=== PATIENT | female | born 1990 | race Two or more races ===

== ENCOUNTER 2018-01-09 05:12 | Day surgery (SDC) | payer OTHER ==
[2018-01-09] MEDS ORDERED: ceFAZolin 2 GM/DEXTROSE 100 ML IV ONE (05:57)
[2018-01-09] MEDS ORDERED: LIDOCAINE 1% 2 ML INJ ID PRN (05:58)
[2018-01-09] MEDS ORDERED: LR 1,000 ML IV ONE (05:58)
[2018-01-09] MEDS ORDERED: ACETAMINOPHEN 500 MG TAB PO ONE (06:11)
[2018-01-09] MEDS ORDERED: PHENAZOPYRIDINE HCL 200 MG TAB PO ONE (06:11)
[2018-01-09] MEDS ORDERED: GABAPENTIN 300 MG CAP PO ONE (06:11)
--- NOTE | 2018-01-09 06:14 | PDGENHP ---
History and Physical History and Physical: Assessment and Plan: 1. Pelvic pain Suzette has symptoms and exam highly suggestive of pelvic endometriosis. We discussed all conservative and surgical options. At the end of our discussion, which involved Dr. Looney, she would like to proceed with robotic laparoscopic excision of endometriosis. She may continue ibuprofen until her surgery. We have coordinated with Dr. Garrett at [facility] who will see her preoperatively to consult removing her gall bladder. 2. Dysmenorrhea 3. Dyspareunia, female Subjective: Patient ID: Suzette is a 27 y.o. female who presents to [facility] for endometriosis consult. HPI Suzette is a 27 year old para [address] Looney via an online support group. Suzette notes that she has always had painful periods. Her menses started at age 9, and were previously regular, with 7-9 days of bleeding. She wears pads, and changes them frequently. In her early 20's, she tried contraception for her menses and pain, starting with a combined patch. She could not tolerate it due to migraines and bruising. She was then changed to a progesterone IUD. Starting in June, she developed worsening RLQ pain, that has become increasingly worse. She takes ibuprofen daily for the pain, and notices a difference if she misses a dose. She was found to have a cyst on an ultrasound in July in [place]. She had her IUD removed and a nexplanon placed, and felt better after her IUD was removed for a short period of time. The pain became worse again, and feels like a sharp, stabbing pain in her RLQ. She does have left sided and midline pelvic pain as well. Suzette has painful intercourse almost every time, to the point where she has stopped having intercourse due to the pain. She notes pelvic discomfort and cramping with penetration as well as orgasm. She has recently started experiencing painful bowel movements, but mostly since she flew [place] to the [place]. She became very constipated during travel and since then has had painful bowel movements. She does have diarrhea during her menses. Suzette has a twin with endometriosis. She is in the [employer] and is under their insurance for the time being, but has been sent [place] the [place] in order to have medical evaluations. 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 She also has gall stones found during her workup and has an appointment with a general surgeon in [place] to schedule a cholecystectomy. She has imaging from [facility] with her. CURRENT MEDICATIONS: Current Outpatient Medications Medication Sig albuterol HFA 90 mcg/actuation inhaler uqofloh-zjmvrjamqrkqx-tgrdorjn (EXCEDRIN MIGRAINE) 250-250-65 mg per tablet ibuprofen (ADVIL,MOTRIN) 400 mg tablet Take 400 mg by mouth every 4 hours as needed for Pain. Take with food. loratadine (CLARITIN PO) naproxen (NAPROSYN) 250 mg tablet Take 250 mg by mouth 2 times daily (with meals). No current facility-administered medications for this visit. ALLERGIES: Patient has no known allergies. I have reviewed, verified and agree with the past medical and surgical history as documented by the RN today. Review of Systems Constitutional: Negative. Respiratory: Negative. Cardiovascular: Negative. Gastrointestinal: Positive for constipation and diarrhea. Genitourinary: Positive for dyspareunia, menstrual problem and pelvic pain. Musculoskeletal: Positive for back pain. Skin: Negative. Objective: Vital Signs: Visit Vitals BP 122/86 Pulse 74 Temp 36.5 C (97.7 F) (Temporal) Resp 14 Ht 1.53 m (5' 0.25") Wt 86.1 kg (189 lb 12.8 oz) SpO2 98% BMI 36.76 kg/m Physical Exam Constitutional: She is oriented to person, place, and time. She appears well- developed and well-nourished. Eyes: Pupils are equal, round, and reactive to light. Neck: Normal range of motion. Cardiovascular: Normal rate. Pulmonary/Chest: Effort normal. Abdominal: Soft. Bowel sounds are normal. Musculoskeletal: Normal range of motion. Neurological: She is alert and oriented to person, place, and time. Skin: Skin is warm and dry. Psychiatric: She has a normal mood and affect. Pelvic: Normal external genitalia. Non-gaping introitus. No vaginal bleeding or discharge. Cervix without lesioni or discharge. Tenderness bilateral uterosacral ligaments, posterior cervix and uterus. Uterus mobile, adnexa mobile. No masses noted. Procedures Pelvic ultrasound performed by Dr. Chace Looney. Findings are as follows: PELVIC ULTRASOUND Transvaginal Pelvic Ultrasound Indication: Pelvic pain. Findings: The uterus is anterior and measures 6.8 x 3.1 x 2.9 cm. No uterine abnormalities are seen. The right ovary measures 2.4 x 1.9 cm. The left ovary measures 2.3 x 2.0 cm. No adnexal masses are seen. No free fluid is seen. There is no evidence of significant adhesive disease. The gynecologic organs are tender. Impression: Unremarkable pelvic ultrasound. DATA: Radiology study reports viewed and are pertinent for cystic ovaries. TIME/COUNSELING: I personally spent a total of 75 minutes. Of that 75 minutes was counseling/ coordination of patient's care. See my note above for details.
[2018-01-09] MEDS ORDERED: BUPIVACAINE/EPI 0.5% 30 ML SDV ONE (06:16)
[2018-01-09] MEDS ORDERED: BUPIVACAINE 0.5% 30 ML SDV ONE (06:16)
--- NOTE | 2018-01-09 06:44 | PDANEPAE ---
ANE History of Present Illness 27 y/o female with gallstones. h/o notable for endometriosis. ANE Past Medical History - Cardiovascular History Hx Hypertension: No Hx Arrhythmias: No Hx Chest Pain: No Hx Coronary Artery / Peripheral Vascular Disease: No Hx CHF / Valvular Disease: No Hx Palpitations: No - Pulmonary History Hx COPD: No Hx Asthma/Reactive Airway Disease: Yes Hx Recent Upper Respiratory Infection: No Hx Oxygen in Use at Home: No Hx Sleep Apnea: No Sleep Apnea Screening Result - Last Documented: Negative Pulmonary History Comment: ASTHMA TRIGGERS EXERCISE INDUCED,ENVIRONMENTAL - Neurologic History Hx Cerebrovascular Accident: No Hx Seizures: No Hx Dementia: No - Endocrine History Hx Diabetes: No - Renal History Hx Renal Disorders: No - Liver History Hx Hepatic Disorders: Yes Hepatic History Comment: GALLSTONES DX 08/2017 - Neurological & Psychiatric Hx Hx Neurological and Psychiatric Disorders: Yes Neurological / Psychiatric History Comment: MIGRAINES 3 TIMES A MONTHS - Cancer History Hx Cancer: No - Congenital Disorder History Hx Congenital Disorders: No - GI History Hx Gastrointestinal Disorders: No - Other Health History Other Health History: ECZEMA,PSORIASIS. ENDOMETRIOSIS. DYSMENORRHEA. BRUISES EASILY - Chronic Pain History Chronic Pain: Yes (RUQ,LOWER ABD) - Surgical History Prior Surgeries: LT EAR X2 FOR CYST REMVL ANE Review of Systems Review of Systems: - Exercise capacity Exercise capacity: >=4 METS METS (RN): 4 METS ANE Patient History - Allergies Allergies/Adverse Reactions: hydrocodone [From Vicodin] Allergy (Verified 01/01/18 11:27) HALLUCINATIONS lactose Allergy (Verified 01/01/18 11:27) GI DISCOMFORT - Home Medications Home medications: home medication list seen and reviewed Home Medications: ALBUTEROL SULFATE PRN 01/01/18 [Last Taken 01/09/18 06:10] Fexofenadine HCl PRN 01/01/18 [Last Taken 01/08/18] Melatonin HS 01/01/18 [Last Taken 12/26/17] Naproxen PRN 01/01/18 [Last Taken 01/01/18] - NPO status NPO Status: no food or drink >8 hours NPO Since - Liquids (Date): 01/09/18 NPO Since - Liquids (Time): 03:00 NPO Since - Solids (Date): 01/08/18 NPO Since - Solids (Time): 21:00 - Smoking Hx Smoking Status: Never smoked ANE Labs/Vital Signs - Vital Signs Blood Pressure: 131/78 Heart Rate: 64 Respiratory Rate: 22 O2 Sat (%): 97 Height: 154.94 cm Weight: 86.636 kg ANE Physical Exam - Airway Mallampati Score: Class 1 Mouth exam: normal dental/mouth exam - Pulmonary Pulmonary: clear to auscultation - Cardiovascular Cardiovascular: regular rate and rhythym - ASA Status ASA Status: II
[2018-01-09] MEDS ORDERED: SCOPOLAMINE HYDROBROMIDE 1 MG/3 DAYS PATCH TD ONE (07:01)
[2018-01-09] MEDS ORDERED: MIDAZOLAM 2 MG/2 ML VIAL IVP ONE (07:01)
[2018-01-09] MEDS ORDERED: fentaNYL 100 MCG/2 ML INJ ONE ×3 (07:07→09:41)
[2018-01-09] MEDS ORDERED: PROPOFOL 200 MG/20 ML VIAL ONE (07:08)
[2018-01-09] MEDS ORDERED: ROCURONIUM 50 MG/5 ML VIAL ONE ×2 (07:10→08:35)
--- NOTE | 2018-01-09 07:10 | PDHPUP ---
History & Physical Update H&P update statement: This history and physical update is based on an assessment of the patient which was completed after admission or registration (within 24 hours), but prior to the surgery/procedure. H&P update: H&P reviewed & patient examined, no change in patient's condition since H&P completed
[2018-01-09] MEDS ORDERED: LIDOCAINE 2% 2 ML INJ ONE ×2 (07:11)
[2018-01-09] MEDS ORDERED: ONDANSETRON 4 MG/2 ML VIAL ONE (08:00)
[2018-01-09] MEDS ORDERED: DEXAMETHASONE 4 MG/ML VIAL ONE (08:00)
[2018-01-09] MEDS ORDERED: PETROLAT,WHT/MIN OIL/SOD CHL 3.5 GM OPHT.OINT ONE (08:43)
[2018-01-09] MEDS ORDERED: ALBUTEROL 3 ML DEYVIAL IH PRN (08:57)
[2018-01-09] MEDS ORDERED: HYDROmorphONE/DILAUDID 2 MG/ML INJ IVP PRN (08:57)
[2018-01-09] MEDS ORDERED: ONDANSETRON 4 MG/2 ML VIAL IVP PRN (08:57)
[2018-01-09] MEDS ORDERED: METOCLOPRAMIDE 10 MG/2 ML VIAL IVP PRN (08:57)
[2018-01-09] MEDS ORDERED: LR 500 ML IV PRN (08:57)
[2018-01-09] MEDS ORDERED: PROMETHAZINE HCL 25 MG/ML INJ IVP PRN (08:57)
[2018-01-09] MEDS ORDERED: NALOXONE HCL 0.4 MG/ML INJ IVP PRN (08:57)
--- NOTE | 2018-01-09 08:57 | POSTOPPROG ---
Post Op Note Date of Operation: 01/09/18 Surgeon: Chace Looney Print Production Manager: Clementine Dumont Anesthesia: GET(General Endotracheal) Pre-op Diagnosis: Pelvic pain, endo Post-op Diagnosis: same Procedure: robotic excision of endo, bilat ureterolysis and ovarian pexy Inf/Abcess present in the surg proc area at time of surgery?: No EBL: Minimal Complications: None
[2018-01-09] MEDS ORDERED: GLYCOPYRROLATE 0.2 MG/1 ML VIAL ONE ×2 (09:01)
[2018-01-09] MEDS ORDERED: KETOROLAC 30 MG/1 ML SDV ONE (09:16)
--- NOTE | 2018-01-09 09:26 | POSTOPPROG ---
Post Op Note Date of Operation: 01/09/18 Surgeon: Emmanuelle Garrett Exterminator Helper Termite: niall Anesthesiologist: andrey Anesthesia: GET(General Endotracheal) Pre-op Diagnosis: cholelithiasis Post-op Diagnosis: same Indication: 27 w cholelithiasis and endometriosis Procedure: lap brijesh lap appy Findings: large gallbladder, appendix injected Inf/Abcess present in the surg proc area at time of surgery?: No Depth: Superfical (Skin SQ) EBL: Minimal Specimen(s): gallbladder, appendix
[2018-01-09] MEDS: fentaNYL 100 MCG/2 ML INJ IVP PRN ×2 (09:40→10:03)
--- NOTE | 2018-01-09 09:43 | POSTANESTH ---
Post Anesthetic Evaluation Respiratory Status: Normal, Stable Level of Consciousness/Mental Status: Can Participate in Eval, Mildly Sleepy, Arousable Pain Control: Adequate, Prn Tx Ordered Nausea/Vomiting Control: Adequate, Prn Tx Ordered Complications Possibly Related to Anesthesia: None Noted
[2018-01-09] MEDS ORDERED: MEPERIDINE 25 MG/0.5 ML AMP IVP PRN (09:44)
[2018-01-09] MEDS ORDERED: ACETAMINOPHEN 500 MG TAB PO PRN (09:44)
[2018-01-09] MEDS ORDERED: ACETAMINOPHEN 500 MG TAB ONE ×2 (10:00→12:02)
--- NOTE | 2018-01-09 10:05 | GOP ---
DATE OF OPERATION: 01/09/2018 SURGEON: Emmanuelle Garrett MD MEDICAL INSURANCE CODING SPECIALIST: GABO Cardona. ANESTHESIA: General. ANESTHESIOLOGIST: Caity Hay MD. PREOPERATIVE DIAGNOSIS: Cholelithiasis. POSTOPERATIVE DIAGNOSIS: Cholelithiasis. PROCEDURE PERFORMED: Laparoscopic appendectomy and laparoscopic cholecystectomy. FINDINGS: SPECIMENS: Gallbladder and appendix. ESTIMATED BLOOD LOSS: 10 cc. INDICATIONS: The patient is a 27-year-old woman in the [facility]. She developed severe endometriosis as well as cholelithiasis, which required her to leave her position. She presents for endometriosis surgery performed by Dr. Looney, as well as cholecystectomy. Preoperatively, the patient had asked for her appendix to also be removed. DESCRIPTION OF PROCEDURE: Patient was brought into the operating room, placed supine on the table, and general anesthesia was administered. Dr. Looney performed his part on the robot prior to my entering the room. After he completed the endometriosis and he had also skeletonized the appendix which was involved, I entered the operating room. I placed an additional 5 mm subxiphoid trocar. I lifted the gallbladder cephalad and laterally to expose the triangle of Calot. I skeletonized the cystic artery and the cystic duct so that they were the only 2 structures directly entering the gallbladder. The common bile duct was protected. The cystic duct and the cystic artery were singly clipped toward the gallbladder, doubly clipped distally, and transected with scissors. I removed the gallbladder from the gallbladder fossa with electrocautery, placed an EndoCatch bag, and removed it via the 12 mm trocar at the umbilicus. I had to enlarge it slightly to accommodate the large gallbladder. Attention was then drawn to the appendix. I used an Endo-KARO 45 white load to divide the appendix at the base. I placed an EndoCatch bag and retrieved it. The abdomen was inspected. No injuries noted. Hemostasis achieved. The fascia at the 12 mm trocar was closed with 0 Vicryl. All skin closed with 4-0 Monocryl. Mastisol, Steri-Strips were applied. She was awakened in the operating room, extubated, transferred to PACU in stable condition. /[id number]/MODL MTDD
--- NOTE | 2018-01-09 10:31 | GOP ---
DATE OF OPERATION: 01/09/2018 SURGEON: Chace Looney MD WEIGHT TESTER: Clementine Dumont CFA ANESTHESIA: General. PREOPERATIVE DIAGNOSIS: 1. Pelvic pain. 2. Endometriosis. POSTOPERATIVE DIAGNOSIS: 1. Pelvic pain. 2. Endometriosis. PROCEDURE PERFORMED: 1. Robotic excision of endometriosis. 2. Bilateral ureterolysis. 3. Bilateral ovariopexy. FINDINGS: SPECIMENS: Pelvic peritoneum with endometriosis. ESTIMATED BLOOD LOSS: Scant. DESCRIPTION OF PROCEDURE: The patient was taken to the operating room where she was identified. Gen eral anesthesia was administered and found to be adequate. She was placed in the lithotomy position and prepared and draped in normal sterile fashion. A Hulka tenaculum was placed in the uterus for ma nipulation. A Jin catheter was then placed. Then, a 1 cm infraumbilical incision was made with a scalpel. The Veress needle with CO2 gas flowing was advanced into the peritoneal cavity. The abdomen was then insufflated with carbon dioxide gas. The 12 mm trocar, followed by the laparoscope were then inserted. The upper abdomen was unremarkabl e. There was no evidence of endometriosis on either diaphragm. Liver, stomach, gallbladder, or deanna l. 2 lateral ports were placed in the right 1 on the left under direct visualization. She then was placed in Trendelenburg position and the Da Blair robot docked on the left side. The instruments wer e then brought into the abdominal cavity under direct visualization. She had 1 small lesion in the left anterior cul-de-sac. She had another underneath the cervix and th e posterior cul-de-sac, as well as some scattered lesions overlying both ureters, and the ovarian fos sa. The posterior cul-de-sac lesion was then excised. Given the cyclic pelvic pain, a bilateral ova riopexy was performed by attaching each ovary to the ipsilateral round ligaments near the internal in guinal rings. A bilateral ureterolysis was required to remove the endometriosis overlying both urete rs. The peritoneum at the pelvic brims was incised. The ureters were gently dissected free and late ralized off the overlying peritoneum and endometriosis from the pelvic brim down to the uterine arter ies. The entire ovarian fossa peritoneum bilaterally was then completely excised. The pelvis was irrigated with sterile saline and hemostasis was present. The robot was then undocked . Dr. Emmanuelle Garrett of General Surgery then performed a cholecystectomy and appendectomy. The patient was then taken the PACU, awake in stable condition. COMPLICATIONS: None. DISPOSITION: Patient stable to PACU. /[id number]/MODL
[2018-01-09] MEDS ORDERED: oxyCODONE IR 5 MG TAB ONE ×2 (11:16→12:02)
[2018-01-09] MEDS: oxyCODONE IR 5 MG TAB PO PRN ×2 (11:17→12:04)
[2018-01-09] MEDS ORDERED: HYDROmorphONE/DILAUDID 2 MG/ML INJ ONE (11:21)
[2018-01-09 12:59] VITALS: BP 117/73
== END 2018-01-09 12:59 | disposition home or self-care (01) ==
LOC: FSGY 05:12
PROVIDERS: ATTEND Obstetrics & Gynecology
PROC: 0UBF4ZZ Excision of Cul-de-sac, Percutaneous Endoscopic Approach (ICD-10-PCS; principal; 2018-01-09 07:15)
PROC: 0DBW4ZZ Excision of Peritoneum, Percutaneous Endoscopic Approach (ICD-10-PCS; principal; 2018-01-09 07:15)
PROC: 0DTJ4ZZ Resection of Appendix, Percutaneous Endoscopic Approach (ICD-10-PCS; principal; 2018-01-09 07:15)
PROC: 0FT44ZZ Resection of Gallbladder, Percutaneous Endoscopic Approach (ICD-10-PCS; principal; 2018-01-09 07:15)
PROC: 0US24ZZ Reposition Bilateral Ovaries, Percutaneous Endoscopic Approach (ICD-10-PCS; principal; 2018-01-09 07:15)
PROC: 8E0W4CZ Robotic Assisted Procedure of Trunk Region, Percutaneous Endoscopic Approach (ICD-10-PCS; principal; 2018-01-09 07:15)
DX: N80.9 Endometriosis, unspecified (principal); R10.2 Pelvic and perineal pain; K80.10 Calculus of gallbladder with chronic cholecystitis without obstruction
CPT/HCPCS: J0690; J1100; J1170; J1885; J2250; J2405; J2704; J3010